=== PATIENT | male | born 1970 | race Caucasian/White ===

== ENCOUNTER → 2018-06-10 | Day surgery (SDC) | payer OTHER ==
[~2018-06-10] MED LIST: ALPRAZOLAM0.5 MG PO; BENICAR/HCTZ PO; FENTANYL CITRATE/PF 100MCG/2 ML INJ ONE; GILENYA0.5 MG PO; HUMALOG100 UNIT/3 SQ; HYOSCYAMINE SULFATE 0.5 MG/ML INJ ONE; KETAMINE HCL INJ 50 MG/ML 10 ML VIAL ONE; LOMOTIL TABLET1 EACH; LOPERAMIDE2 MG PO; METFORMIN HCL500 MG PO; MIDAZOLAM HCL 5 MG/ML VIAL ONE; OZEMPIC PO; PROPOFOL IV EMULSION 10 MG/ML 50 ML VIAL ONE; TRESIBA SQ; VITAMIN D3 PO; ZETIA10 MG PO
[2018-06-10 10:04] LABS: WBC,FECAL (FECAL LACTOFERRIN) POSITIVE (NEGATIVE)
[2018-06-10 10:10] VITALS: BP 106/64
--- NOTE | 2018-06-10 10:44 | Operative Report ---
DATE OF PROCEDURE: 06/10/2018 SURGEON: Srini Sue MD PROCEDURE: Esophagogastroduodenoscopy with biopsies and esophageal dilatation and colonoscopy with polypectomy and biopsies. INDICATIONS FOR EGD: Dysphagia to solids, acid reflux. INDICATIONS FOR COLONOSCOPY: Chronic diarrhea. MEDICATIONS: The patient was done under MAC. Please see anesthesiologist's note. PROCEDURE IN DETAIL: With the patient in left lateral decubitus position, a flexible fiberoptic Olympus gastroscope was introduced into the esophagus under direct visualization without any difficulty. There was some patchy erythema noted in distal esophagus. The esophagus was then dilated to size 52-[place] Hodges. The scope was then advanced with ease into the stomach. Mucosa overlying the antrum and the body revealed some patchy intense erythema, [id number] edema, and biopsies were obtained and sent to stain for H. pylori. Two minute polyps were noted in the proximal antrum and those were partially excised with the cold biopsy forceps. One polyp was noted in the distal body and that was partially excised with cold biopsy forceps. Pylorus was of normal contour and shape. It was intubated with ease, and the scope was advanced all the way to the second portion of the duodenum. The scope was then withdrawn slowly and mucosa overlying the proximal second portion and duodenal bulb grossly appeared to be within normal limits. Biopsies were obtained to rule out celiac disease considering the patient's history of chronic diarrhea. The scope was then withdrawn back into the stomach and retroflexed. Mucosa overlying the fundus and cardia appeared to be within normal limits. The scope was then straightened out. It was subsequently withdrawn. The patient tolerated procedure well. IMPRESSION: 1. Distal esophagitis. 2. Esophagus dilated to size 52-[place] Hodges. 3. Gastritis, biopsied, biopsies sent to stain for H. pylori. 4. Gastric polyp, distal body, partially excised with the cold biopsy forceps. 5. Rule out sprue. PLAN: Follow up histology. Initiate Protonix 40 mg one p.o. q.a.m. a.c. The patient was then turned around. After adequate lubrication of the anal canal, a flexible fiberoptic Olympus colonoscope was inserted into the rectum with ease and advanced all the way to the cecum. Mucosa overlying the cecum appeared to be within normal limits. The ileocecal valve was intubated and the scope was advanced into the terminal ileum. Biopsies were obtained. The scope was then withdrawn back into the colon. It was then withdrawn slowly and 1 polyp was snared from the ascending colon. The transverse grossly appeared to be within normal limits. Mild patchy inflammatory changes were noted in the left colon. Random biopsies were obtained. Diverticular disease was noted to involve the descending and the sigmoid colon. Four polyps were hot biopsied, one polyp was snared from the sigmoid and the rectosigmoid area, and three polyps were hot biopsied from the rectum. The scope was then retroflexed into the distal rectum and moderate-sized internal hemorrhoids were noted, none of which was actively bleeding. The scope was then straightened out. It was subsequently withdrawn after securing an adequate stool specimen, that was sent for the appropriate stool studies. The patient tolerated the procedure well. IMPRESSION: 1. Ascending colon polyp, snared. 2. Mild patchy left-sided colitis. 3. Diverticulosis. 4. Sigmoid colon polyps x5, one snared and four hot biopsied. 5. Rectal polyps x3, hot biopsied. 6. Internal hemorrhoids, none actively bleeding. PLAN: Follow up histology. Follow up stool studies. Initiate Bentyl 20 mg one p.o. t.i.d. VSL #3 one p.o. daily. The patient might benefit from a followup colonoscopy in 2 to 3 years. A total of nine polyps were removed. MD VEENA Lopez/JESSIKA /[id number] cc: Tacho Mendoza DO
[2018-06-10 15:15] LABS: C DIFFICILE TOXIN A&B AMP PROB NEGATIVE (NEGATIVE)
== END | disposition home or self-care (01) ==
LOC: OR 05:58
PROVIDERS: ATTEND Internal Medicine Gastroenterology
DX: K21.9 Gastro-esophageal reflux disease without esophagitis (principal); D12.2 Benign neoplasm of ascending colon; K62.1 Rectal polyp; K31.7 Polyp of stomach and duodenum; K51.50 Left sided colitis without complications; K29.70 Gastritis, unspecified, without bleeding; K20.9 Esophagitis, unspecified; K57.30 Diverticulosis of large intestine without perforation or abscess without bleeding; K64.8 Other hemorrhoids; I10 Essential (primary) hypertension; G35 Multiple sclerosis; E11.9 Type 2 diabetes mellitus without complications; Z88.0 Allergy status to penicillin; Z01.810 Encounter for preprocedural cardiovascular examination; Z79.4 Long term (current) use of insulin
CPT/HCPCS: 43239; 43450; 45380; 45384; 45385; 83630; 83993; 87045; 87177; 87328; 87493; 93005; J1980; J2250; J2704

== ENCOUNTER → 2020-08-01 | Outpatient (CLI) | payer OTHER ==
[~2020-08-01] MED LIST changes: -FENTANYL CITRATE/PF 100MCG/2 ML INJ ONE; -HYOSCYAMINE SULFATE 0.5 MG/ML INJ ONE; -KETAMINE HCL INJ 50 MG/ML 10 ML VIAL ONE; -MIDAZOLAM HCL 5 MG/ML VIAL ONE; -PROPOFOL IV EMULSION 10 MG/ML 50 ML VIAL ONE
== END ==
LOC: DX 08:53
PROVIDERS: ATTEND Internal Medicine Gastroenterology
DX: R10.9 Unspecified abdominal pain (principal); Z20.822 Contact with and (suspected) exposure to COVID-19
CPT/HCPCS: 74250; U0002

== ENCOUNTER → 2020-12-03 | Outpatient (CLI) | payer OTHER | LOC: RAD 15:36 | PROVIDERS: ATTEND Family Medicine | DX: J12.82 Pneumonia due to coronavirus disease 2019 (principal) | CPT/HCPCS: 71046 ==